=== PATIENT | male | born 1975 | race Caucasian/White ===

== ENCOUNTER 2023-02-24 09:05 | Emergency (ER) | payer BC, SELFPAY ==
[2023-02-24] VITALS (29 sets, daily range): BP systolic 137–169; BP diastolic 91–108; PULSE 55–70; RESP 19; TEMP 36.2; O2SAT 96–100; BMI 37.0
--- NOTE | 2023-02-24 10:24 | CRLHL7_ITS ---
For Patients: As a result of the Century Cures Act, medical imaging exams and procedure reports are released immediately into your electronic medical record. You may view this report before your referring provider. If you have questions, please contact your health care provider. CT HEAD DATE: 02/24/2023 CLINICAL HISTORY: Patient with hypertension and headache. TECHNIQUE: Standard CT scanning of the head was performed. COMPARISON: None. FINDINGS: There is no intracranial hemorrhage. There is no territorial infarction. There are mild microangiopathic changes. There is diffuse parenchymal volume loss. There is no mass effect or midline shift. The calvarium is unremarkable. The orbits are unremarkable. The paranasal sinuses are unremarkable. The mastoid air cells are unremarkable. The soft tissues are unremarkable. IMPRESSION: 1. No intracranial hemorrhage or territorial infarction. 2. Mild microangiopathic changes and diffuse parenchymal volume loss. Please note that all CT scans at this facility use dose modulation, iterative reconstruction, and/or weight-based dosing when appropriate to reduce radiation dose to as low as reasonably achievable. Dictated by: Ramon Wiley MD @ 02/24/2023 11:36:55 (Electronically Signed)
--- NOTE | 2023-02-24 10:24 | CRLHL7_ITS ---
For Patients: As a result of the Century Cures Act, medical imaging exams and procedure reports are released immediately into your electronic medical record. You may view this report before your referring provider. If you have questions, please contact your health care provider. CT ANGIOGRAM HEAD DATE: 02/24/2023 CLINICAL HISTORY: Patient with headache and pulsatile tinnitus. TECHNIQUE: Standard helical CT image acquisition through the intracranial circulation following intravenous administration of contrast material with bolus tracking. 2D and 3D MIP images for post-processing were performed and interpreted on an independent workstation and 3D images were permanently archived. COMPARISON: CT same day. FINDINGS: There is no proximal intracranial large vessel occlusion. There is no intracranial aneurysm. The right internal carotid artery is normal. The right middle cerebral artery and its branches are normal. The right anterior cerebral artery and its branches are normal. The left internal carotid artery is normal. The left middle cerebral artery and its branches are normal. The left anterior cerebral artery and its branches are normal. The anterior communicating artery is well visualized and appears normal. The right vertebral artery and PICA are normal. The left vertebral artery and PICA are normal. The right vertebral artery is dominant. The basilar artery is patent and appears normal. The right posterior cerebral artery is normal. The left posterior cerebral artery is normal. The visualized venous structures are patent. IMPRESSION: Patent proximal intracranial vasculature without intracranial aneurysm. Please note that all CT scans at this facility use dose modulation, iterative reconstruction, and/or weight-based dosing when appropriate to reduce radiation dose to as low as reasonably achievable. Dictated by: Ramon Wiley MD @ 02/24/2023 11:07:54 (Electronically Signed)
--- NOTE | 2023-02-24 10:24 | CRLHL7_ITS ---
For Patients: As a result of the Century Cures Act, medical imaging exams and procedure reports are released immediately into your electronic medical record. You may view this report before your referring provider. If you have questions, please contact your health care provider. CT ANGIOGRAM NECK DATE: 02/24/2023 CLINICAL HISTORY: Patient with headache and pulsatile tinnitus. TECHNIQUE: Standard helical CT image acquisition of the neck up to the skull base after bolus intravenous contrast enhancement. 2D and 3D MIP images for post-processing were performed and interpreted on an independent workstation and 3D images were permanently archived. COMPARISON: CT same day. FINDINGS: The origins of the great vessels from the aortic arch were not imaged. The origin of the right vertebral artery is patent. The origin of the left vertebral artery is patent. The common carotid arteries are patent. There is no stenosis at the origin of the right internal carotid artery. There is no stenosis at the origin of the left internal carotid artery. The rest of the cervical segments of the internal carotid arteries are patent up to the skull base. The right vertebral artery is dominant. The cervical segments of the vertebral arteries are patent up to the skull base. The visualized lung apices are unremarkable. The thyroid gland is unremarkable. The soft tissues of the neck are unremarkable. There are degenerative changes in the cervical spine. IMPRESSION: Patent cervical vasculature. Please note that all CT scans at this facility use dose modulation, iterative reconstruction, and/or weight-based dosing when appropriate to reduce radiation dose to as low as reasonably achievable. Dictated by: Ramon Wiley MD @ 02/24/2023 11:05:34 (Electronically Signed)
--- NOTE | 2023-02-24 10:26 | ED_ITS ---
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 He presents to the ER today with concern that his blood pressure high and is giving him a pressure and a throbbing headache. He actually has been under lot of stress lately. His father about a year and half ago when his mother has been struggling. This is very stressful for him. He also has 2 children who have busy lives. He has a busy job. Yesterday while he was at work here at the [employer] he began to have a throbbing pulsing headache and felt his blood wishing in his low left ear. He felt a bit funny. No other definite symptoms such as focal numbness, weakness, slurred speech, facial droop. No chest pain. No shortness of breath. No palpitations. He checked his blood pressure and was elevated at about 160/100. He checked it again it was about 160/115. He came here to the ER and his blood pressure checked again and it was down to 140/90. He decided to drive home. He stopped at the urgent care at [facility] ([facility] of [facility] yesterday evening and had lab work and EKG that were normal. Troponin was normal. Kidney function was normal. CBC was normal. EKG was normal. He waited almost 3 hours before he could even be seen by provider and then left because he had to go home to care for his children. For had ongoing throbbing head pressure last night while watching the [employer] but was able to sleep last night. He felt fairly normal this morning and came to work but since he got back to work he now has had pressure again. Blood pressure was high at about 160/90 so he presented here to the ER. He does not have any known history of hypertension and is not on any blood pressure meds. He has a family history of heart disease in his father at a young age Related Data Previous Rx's Medication Instructions Recorded lisinopril 20 mg tablet 20 mg PO DAILY #30 tabs 02/24/23 Allergies Allergy/AdvReac Type Severity Reaction Status Date / Time No Known Drug Allergies Allergy Verified 02/24/23 09:19 [facility] Social History Smoking Status: Unknown if ever smoked Exam 2 Narrative: Exam Narrative: Constitutional: Appears well-developed and well-nourished. Alert. Conversant. Non toxic. HENT: Head: Atraumatic. Nose: Nose normal. Mouth/Throat: Oral mucosa is clear and moist. no trismus. Pharynx normal. Tonsils symmetric. No tonsillar enlargement, erythema, or exudate. Eyes: Conjunctivae normal. EOM normal. Pupils equal, round, and reactive to light. No scleral icterus. Neck: Normal range of motion. Neck supple. No tracheal deviation present. Cardiovascular: Normal rate, regular rhythm. No gallop. No friction rub. No murmur heard. Symmetric radial artery pulses Pulmonary/Chest: Effort normal. No stridor. No respiratory distress. No wheezes. No rales. No rhonchi . No tenderness. Abdominal: Soft. Bowel sounds normal. No distension. No mass. No tenderness. No rebound. No guarding. Musculoskeletal: RUE: Normal range of motion. No tenderness. No deformity LUE: Normal range of motion. No tenderness. No deformity RLE: Normal range of motion. No edema. No tenderness. No deformity LLE: Normal range of motion. No edema. No tenderness. No deformity Neurological: Mental status normal. Attention normal. Alert and oriented x3. GCS 15. Memory normal. Speech fluent. Cognition normal. Cranial Nerves intact II-XII except I did not formally test gag or visual acuity. EOMI. Palate elevates symmetrically and tongue protrudes in the midline. Strength: 5/5 trapezius on the right and left 5/5 deltoid on the right and left 5/5 biceps on the right and left 5/5 triceps on the right and left 5/5 gang leader on the right and left 5/5 thumb opposition on the right and le ft 5/5 finger abduction on the right and le ft 5/5 hip flexors (L3) on the right and le ft 5/5 quadriceps (L4) on the right and lef t 5/5 tibialis anterior on the right and l eft 5/5 EHL (L5) on the right and left 5/5 gastrocnemius (S1) on the right and left 5/5 hamstring on the right and left Sensation intact to light touch in both upper extremities (C4-T1) Sensation intact to light touch in Both lower extremities (L4-S1). Finger to nose and coordination normal. Gait normal. Normal coordination Skin: Skin is warm and dry. No rash noted. No pallor. Normal capillary refill. Psychiatric: Normal mood. Normal affect. Const: Vital Signs, click to edit/add: Vital Signs - 24 hr 02/24/23 09:11 02/24/23 09:12 02/24/23 09:15 Temperature Pulse Rate 70 67 69 Pulse Rate [Apical ] Respiratory Rate Blood Pressure 169/108 H Blood Pressure [Le ft Upper Arm] Pulse Oximetry 99 98 98 Oxygen Delivery [facility] Room Air 02/24/23 09:19 02/24/23 09:30 02/24/23 09:31 Temperature 97.2 F L Pulse Rate 62 64 Pulse Rate [Apical ] 65 Respiratory Rate 19 Blood Pressure 137/91 H Blood Pressure [Le ft Upper Arm] 169/108 H Pulse Oximetry 96 96 96 Oxygen Delivery [facility] Room Air 02/24/23 09:45 02/24/23 10:00 02/24/23 10:01 Temperature Pulse Rate 61 60 70 Pulse Rate [Apical ] Respiratory Rate Blood Pressure 145/92 H Blood Pressure [Le ft Upper Arm] Pulse Oximetry 96 96 96 Oxygen Delivery [facility] 02/24/23 10:15 02/24/23 10:30 02/24/23 10:31 Temperature Pulse Rate 62 64 61 Pulse Rate [Apical ] Respiratory Rate Blood Pressure 142/95 H Blood Pressure [Le ft Upper Arm] Pulse Oximetry 97 98 96 Oxygen Delivery [facility] 02/24/23 10:51 02/24/23 11:00 02/24/23 11:02 Temperature Pulse Rate 64 58 L 62 Pulse Rate [Apical ] Respiratory Rate Blood Pressure 149/102 H Blood Pressure [Le ft Upper Arm] Pulse Oximetry 100 100 100 Oxygen Delivery [facility] 02/24/23 11:03 02/24/23 11:15 02/24/23 11:30 Temperature Pulse Rate 60 63 61 Pulse Rate [Apical ] Respiratory Rate Blood Pressure Blood Pressure [Le ft Upper Arm] Pulse Oximetry 99 100 100 Oxygen Delivery [facility] 02/24/23 11:32 02/24/23 11:45 02/24/23 12:00 Temperature Pulse Rate 60 63 56 L Pulse Rate [Apical ] Respiratory Rate Blood Pressure 152/101 H Blood Pressure [Le ft Upper Arm] Pulse Oximetry 100 100 99 Oxygen Delivery Me thod 02/24/23 12:02 02/24/23 12:15 02/24/23 12:30 Temperature Pulse Rate 58 L 56 L 57 L Pulse Rate [Apical ] Respiratory Rate Blood Pressure 149/102 H Blood Pressure [Le ft Upper Arm] Pulse Oximetry 99 96 99 Oxygen Delivery Me thod 02/24/23 12:31 02/24/23 12:45 02/24/23 13:00 Temperature Pulse Rate 65 55 L 67 Pulse Rate [Apical ] Respiratory Rate Blood Pressure 149/101 H Blood Pressure [Le ft Upper Arm] Pulse Oximetry 97 96 98 Oxygen Delivery Me thod 02/24/23 13:02 02/24/23 13:03 Temperature Pulse Rate 58 L 63 Pulse Rate [Apical ] Respiratory Rate Blood Pressure 143/97 H Blood Pressure [Le ft Upper Arm] Pulse Oximetry 98 99 Oxygen Delivery Me thod Course Vital Signs Vital signs: Initial Vital Signs Pulse Rate 70 02/24/23 09:11 Blood Pressure 169/108 H 02/24/23 09:11 Blood Pressure Mean 128 H 02/24/23 09:11 Pulse Oximetry 99 02/24/23 09:11 Oxygen Delivery Method Room Air 02/24/23 09:11 Vital Signs Pulse Rate 70 02/24/23 09:11 Blood Pressure 169/108 H 02/24/23 09:11 Pulse Oximetry 99 02/24/23 09:11 Oxygen Delivery Method Room Air 02/24/23 09:11 Temperature 97.2 F L 02/24/23 09:19 Pulse Rate 63 02/24/23 13:03 Respiratory Rate 19 02/24/23 09:19 Blood Pressure 143/97 H 02/24/23 13:02 Pulse Oximetry 99 02/24/23 13:03 Oxygen Delivery Method Room Air 02/24/23 09:19 Medical Decision Making MDM Narrative Medical decision making narrative: This patient presents for evaluation of elevated blood pressure. There is no diagnosed history of hypertension in the past. No concerning symptoms of chest pain focal neurologic deficits. He does have an associated headache with a pulsatile tinnitus component. Therefore we did obtain head CT. It is negative for any acute cranial hemorrhage. No evidence for any vascular disease such as intracranial aneurysm, dissection, AVM, or clear abnormality. There are evidence for chronic microangiopathic changes, discussed with the patient. The workup here is negative and the patient does not have any clinical, laboratory, ecg or historical signs of end-organ dysfunction. There is no signs of hypertensive emergency or urgency. Supportive outpatient management is therefore indicated with close follow-up of primary care physician. Given data obtained here in ED, will initiate lisinopril 20 mg daily for therapy at this time and encouraged serial blood pressure monitoring at home to aid primary in decision making regarding hypertension. There may be a significant underlying component of stress and anxiety contributing to the patient's headache and blood pressure, as above. He will work on that. Also discussed habit changes, exercise, dietary modification to manage his blood pressure. He will follow-up with PCP. Lab Data Labs: Lab Results 02/24/23 Range/Units 10:40 Sodium 136 (135-149) mmol/L Potassium 4.5 (3.6-5.1) mmol/L Chloride 99 (96-114) mmol/L Carbon Dioxide 32 (20-32) mmol/L Anion Gap 5 L (7-15) mEq/L BUN 12 (5-24) mg/dL Creatinine 1.0 (0.5-1.5) mg/dL Estimated Creat Clear 99.35 Estimated GFR 95 ml/min Glucose 92 (60-115) mg/dL Calcium 9.2 (8.4-10.6) mg/dL Troponin I < 0.01 L (0.01-0.04) ng/mL ECG Data Attestation: I personally reviewed and interpreted this ECG as follows: Interpretation: Normal sinus rhythm rate 62 WV 156 QRS axis normal axis. No pathologic Q-waves. ST segment/T wave: No ST segment elevation or depression. QTc: 406 Discharge Plan Discharge Clinical Impression: Hypertension Patient Disposition: Home, Self-Care Condition: Stable Instructions: Hypertension (ED) Additional Instructions: As we discussed, please start on the new blood pressure medication (lisinopril) until you can see your doctor for checkup. Measure blood pressure once per day and keep a record of your measurements for your doctor. If you have worsening symptoms such as severe headache, stroke symptoms like numbness or tingling in your arms or legs, weakness, speech difficulty, or if you develop chest pain, trouble breathing, return to the ER immediately. Prescriptions: New lisinopril 20 mg tablet 20 mg PO DAILY Qty: 30 0RF Follow Up/Referrals: Provider,Not a Local [Primary Care Provider] - Stand Alone Forms: [employer] Info Instructions
[2023-02-24] MEDS: KETOROLAC 15 MG/ML inj IVP (11:02)
[2023-02-24 11:20] LABS: Chloride* 99 mmol/L (96-114); Potassium* 4.5 mmol/L (3.6-5.1); Sodium* 136 mmol/L (135-149)
[2023-02-24 11:23] LABS: Anion Gap 5 mEq/L (7-15); Blood Urea Nitrogen* 12 mg/dL (5-24); Calcium* 9.2 mg/dL (8.4-10.6); Carbon Dioxide* 32 mmol/L (20-32); Est. Creatinine Clearance* 99.35; Estimated Glomerular Filt Rate 95 ml/min; Glucose* 92 mg/dL (60-115)
[2023-02-24 11:36] LABS: Troponin I* < 0.01 ng/mL (0.01-0.04)
--- NOTE | 2023-02-24 13:12 | ED.NURSE ---
Pt denies chest pain. States he has a headache.
== END 2023-02-24 13:12 | disposition home or self-care (01) ==
PROVIDERS: Emergency Provider Emergency Medicine
DX: I10 Essential (primary) hypertension (principal)
CPT/HCPCS: 36415; 70450; 70496; 70498; 80048; 84484; 96374; 99283; 99284; 99285; J1885; Q9967